=== PATIENT | male | born 1980 | race Caucasian/White ===

== ENCOUNTER 2023-06-14 14:17 | Emergency (ER) | payer OTHER, SELFPAY ==
[2023-06-14 14:23] VITALS: BP 160/93
[2023-06-14 14:41] LABS: % Basophils 0.4 % (0-2); % Immature Granulocytes 0.4 % (0-0.5); % Lymphocytes 28.3 % (20.5-51.1); % Monocytes 8.3 % (1.7-9.3); % Neutrophils 61.6 % (42.2-75.2); Absolute Eosinophils 0.1 10^3/uL (0-0.7); Absolute Monocytes 0.6 10^3/uL (0.1-0.6); Absolute Neutrophils 4.3 10^3/uL (1.4-6.5); Hematocrit 38.2 % (39.0-52.0); Hemoglobin 12.9 g/dL (13.0-18.0); Mean Corp Hgb Conc. 33.8 g/dL (33.0-37.0); Mean Corpuscular Hgb 29.3 pg (27.0-31.0); Mean Corpuscular Volume 86.6 fL (80.0-94.0); Mean Platelet Volume 8.3 fL (7.4-10.4); Nucleated Red Blood Cells % 0 % (-); Platelet Count 313 10^3/uL (130-400); Red Blood Cell Count 4.41 10^6/uL (4.70-6.10); Red Cell Dist. Width 12.3 % (11.5-14.5)
[2023-06-14 14:52] LABS: ALT (SGPT) 19 U/L (0-50); AST (SGOT) 21 U/L (17-59); Albumin 4.2 g/dl (3.5-5.0); Alkaline Phosphatase 91 U/L (38-126); Blood Urea Nitrogen 13 mg/dl (9-20); Calcium 9.2 mg/dl (8.4-10.2); Carbon Dioxide 27 mmol/L (22-30); Chloride 102 mmol/L (98-107); Glucose 106 mg/dl (70-99); Potassium 3.6 mmol/L (3.5-5.1); Sodium 135 mmol/L (135-145); Total Bilirubin 0.4 mg/dl (0.2-1.3); Total Protein 7.6 g/dl (6.3-8.2); eGFR > 60.00
--- NOTE | 2023-06-14 15:13 | ED.GENMED ---
History of Present Illness
General
Chief Complaint: Flank Pain
Time Seen by Provider: 06/14/23 15:01
Travel History
Have you had any contact with someone who has COVID-19?: No
Do you have any symptoms of coronavirus? Fever > 100 degrees, chills, cough, shortness of breath, sore throat, loss of taste or smell, muscle aches, or headache?: No
History of Present Illness
History of Present Illness:
HPI: The patient presents due to severe abrupt onset right flank pain. This feels similar to prior kidney stone. 2 years ago, the patient states that he required the OR intervention for management of the stone. This feels very similar to prior.
He does not have nausea. He has had no fevers. He tends to avoid NSAIDs as he has history of Crohn's disease.
EXAM:
GENERAL: Well appearing in mild distress
HEENT: Moist oral mucosa
CARDIOVASCULAR: No murmurs, normal heart rate, regular rhythm, No chest wall tenderness
PULMONARY: No respiratory distress, breath sounds are clear and equal
ABDOMEN: Soft with no peritoneal signs, no tenderness
NEUROLOGIC: Excellent strength all extremities, no coordination deficits
BACK: There is some vague right CVA tenderness
PSYCHIATRIC: Appropriate mental status, normal insight and judgement
EXTREMITIES: Nontender, no edema, moves all extremities equally
SKIN: No rash, no lesions
TIME OF INITIAL ENCOUNTER: 3:10 PM
NUMBER AND COMPLEXITY OF PROBLEMS ADDRESSED AT THE ENCOUNTER
� Chronic conditions affecting care: Crohn's disease, has had ureteral stone requiring operative management, has had bowel resection
� Acute Exacerbation and/or Progression of Chronic Illness: This is an acute problem
� Differential Diagnosis includes: Ureteral stone, UTI less likely, exacerbation of Crohn's disease very unlikely
AMOUNT AND/OR COMPLEXITY OF DATA TO BE REVIEWED AND ANALYZED
� I performed an independent evaluation of and my interpretation is:
EKG:
CT: I personally viewed CT imaging and agree with radiologist interpretation. I do see a stone at the distal right ureter which is small.
X-rays:
Laboratory Studies: White count 7.0, hemoglobin 12.9 which is a little bit lower than prior, chemistries unremarkable
Other:
� Review of other/old records: The patient had a stent placed in the right ureter by Dr. Segal in August 2019 due to a 7 mm mid right ureteral stone
� Clinical information was obtained by an independent historian: None needed
� Prescriptions/Medications Considered but not given:
� Further testing considered but not performed:
RISK OF COMPLICATIONS AND/OR MORBIDITY OR MORTALITY OF PATIENT MANAGEMENT
� Social determinants of health affecting care: Lives at home, drove himself here
� Discussion with other providers:
� Escalation of care including admission/observation vs risk of discharge considered: Will try dose of Toradol as a very strong suspicion for ureteral stone and initially will avoid narcotics as he did drive here. On
reassessment at about 5:30 PM, he appears very comfortable and states he is virtually no pain. He states he cannot tolerate solid pills�I have sent a prescription to his pharmacy for liquid oxycodone. I suggested a very short course of NSAIDs.
Past History
Past History
ED Past Medical History: Other (Crohn's colitis)
ED Past Surgical History: Other (2 prior bowel resections)
Social History
Tobacco: Non-smoker
Alcohol: None
Drug: None
Personal:
Living: with family
Employment: Employed
Family History
Family History: Other
Phy Exam
Physical Exam
Physical Exam:
See HPI
Course
Orders/Labs/Results
Orders:
Orders
06/14/23 14:28
CMP [Comprehensive Metabolic Panel] Urgent
Complete Blood Count/With Diff Urgent
06/14/23 15:11
0.9% Sodium Chloride 1000 ml [Nss] 1,000 ml IV BOLUS
Ketorolac [Toradol] 15 mg IV NOW STA
06/14/23 15:12
CT Abd/pel Without Iv Or Oral Urgent
Comment:
Reason For Exam: abrupt R flank pain
06/14/23 16:02
Urinalysis Reflex To Culture Urgent
Date Specimen was Collected: 06/14/23
Time Specimen was Collected: 14:25
Urine Microscopic Reflex Cult Urgent
Abnormal Lab Results
06/14/23 06/14/23
14:28 16:02
RBC 4.41 L 10^6/uL
(4.70-6.10)
Hgb 12.9 L g/dL
(13.0-18.0)
Hct 38.2 L %
(39.0-52.0)
Glucose 106 H mg/dl
(70-99)
Ur Occult Blood Reflex 1+ A
(Negative)
Urine RBC 11-15 A /HPF
(0-2)
Urine Bacteria (Reflex) Few A
(Negative)
06/14/23 14:28
06/14/23 15:11
Vital Signs
Initial and Last Documented VS:
Initial Vital Signs
Temp Pulse Resp BP Pulse Ox
98.6 F 89 18 160/93 99
06/14/23 14:23 06/14/23 14:23 06/14/23 14:23 06/14/23 14:23 06/14/23 14:23
Last Documented Vital Signs
Temp Pulse Resp BP Pulse Ox
98.6 F 88 18 135/91 98
06/14/23 14:23 06/14/23 18:32 06/14/23 18:32 06/14/23 18:32 06/14/23 18:32
*Critical Care Note
Total Time (30-74mins, 75-104mins- exclusive of procedures): Not Applicable
ED Attending Note
-
Portions of this chart may have been created with voice recognition software.� Occasional wrong word or��sound alike� substitutions may have occurred due to the inherent limitations of voice recognition software.
Discharge Plan
Departure
Patient Disposition: Home (Routine Discharge)
Date of Disposition: 06/14/23
Time of Disposition: 18:24
Patient with high blood pressure during this ER visit?: Yes
Discharge Problem:
Right distal ureteral calculus
Instructions: Renal Colic (DC)
Prescriptions:
New
oxycodone 5 mg/5 mL solution
5 - 10 mg PO Q6H PRN (Reason: Pain) Qty: 90 0RF
No Action
Stelara:
1 dose IM .[id number]
multivitamin with folic acid [Tab-A-Dante] 1 TABLET tablet
1 tab PO HS
Vitamin D3 Chewable
1 tab PO HS
loratadine 10 MG tablet
10 mg PO DAILY
Lactobacillus acidophilus [Probiotic] 1 EACH capsule
1 ea PO HS
Iron
54 mg PO HS
Referrals:
Maribell Smith CRNP [Family Provider] -
Raoul Head Jr., MD [Active] - Follow up in 5-7 days
Activity Restrictions/Additional Instructions:
Strain your urine. I have given you the contact information for local urologist, Dr. Head. You have a small stone in the distal ureter near the bladder therefore it is highly likely that this should pass on its own. I also recommend taking
NSAIDs such as ibuprofen/Motrin to help with pain.
CT:
1-2 mm distal right ureteral calculus, just superior to the right ureterovesical junction. Moderate right ureteral and pelvicalyceal dilation with mild right perinephric edema.
Tiny 2 mm nephrolith in the lower pole the right kidney. No evidence for left-sided urinary tract calculus.
Interventions
Interventions:
*Risk Screen - Suicide Last Done: 06/14/23 14:23
*General Assessment Last Done: 06/14/23 15:09
*Neglect/Abuse Screening Last Done: 06/14/23 14:23
ED- Fall Risk Assessment Last Done: 06/14/23 15:09
*ED COVID-19 Vaccine History Last Done: 06/14/23 14:23
*Nursing Disposition Last Done: 06/14/23 18:33
QT-Eckzze-Rzzmyoyjct Assessment Last Done: 06/14/23 15:07
ED-Male Genitourinary Assessment Last Done: 06/14/23 15:07
Discharge Date and Time
Discharge Date/Time: 06/14/23 18:33
Print Language: HONG KONGER
[2023-06-14] MEDS: NSS 1000 IV (15:30)
[2023-06-14] MEDS: TORADOL 15 MG IV (15:32)
[2023-06-14 16:22] LABS: Urine Albumin Negative (Neg - Trace); Urine Bilirubin Negative (Negative); Urine Character Clear (Clear); Urine Color Yellow; Urine Glucose Negative (Negative); Urine Ketone Negative (Negative); Urine Leukocyte Negative (Negative); Urine Nitrite Negative (Negative); Urine Occult Blood 1+ (Negative); Urine Urobilinogen Negative (Neg - 1+)
[2023-06-14 16:30] LABS: Urine Squamous Cell 0-2 /LPF (Few)
[2023-06-14 16:31] LABS: Urine Mucus Moderate
[2023-06-14 16:32] LABS: Urine Bacteria Few (Negative); Urine White Cell 0-2 /HPF (0-5)
[2023-06-14 18:32] VITALS: BP 135/91
== END 2023-06-14 18:33 | disposition home or self-care (01) ==
LOC: EMR 14:17
PROVIDERS: Student in an Organized Health Care Education/Training Program; EMERGENCY PHYSICIAN Emergency Medicine; FAMILY PHYSICIAN Family Medicine
DX: N20.1 Calculus of ureter (principal); K50.90 Crohn's disease, unspecified, without complications; Z87.442 Personal history of urinary calculi; Z90.49 Acquired absence of other specified parts of digestive tract
CPT/HCPCS: 99284; 96374; 96361; 74176; 80053; 81003; 81015; 85025

== ENCOUNTER → 2024-10-04 07:52 | Outpatient (REF) | payer OTHER, SELFPAY | LOC: MRI 3T 07:52 | PROVIDERS: ATTENDING PHYSICIAN Internal Medicine Gastroenterology; FAMILY PHYSICIAN Family Medicine | DX: K50.818 Crohn's disease of both small and large intestine with other complication (principal) | CPT/HCPCS: 72197; 74183; A9575 ==

== ENCOUNTER 2024-10-10 05:52 | Emergency (ER) | payer OTHER, SELFPAY ==
[2024-10-10 05:57] VITALS: BP 159/102
[2024-10-10 06:21] VITALS: BP 147/110
[2024-10-10 06:35] VITALS: BMI 22.1
[2024-10-10 06:44] LABS: Hematocrit 41.3 % (39.0-52.0); Hemoglobin 13.3 g/dL (13.0-18.0); Mean Corp Hgb Conc. 32.2 g/dL (33.0-37.0); Mean Corpuscular Volume 86.8 fL (80.0-94.0); Nucleated Red Blood Cells % 0 % (-); Platelet Count 313 10^3/uL (130-400); Red Cell Dist. Width 13.5 % (11.5-14.5)
--- NOTE | 2024-10-10 06:48 | ED.GENMED ---
History of Present Illness
General
Chief Complaint: Chest Pain
Source: patient
Exam Limitations: none
Time Seen by Provider: 10/10/24 06:15
Nursing documentation reviewed up to this point in time: agreed with
History of Present Illness
History of Present Illness:
Patient is a 44-year-old male with history of Crohn's disease on Remicade who presents to the emergency department for evaluation of left-sided chest pain. Patient states that this morning as he was driving to work around 3:30 AM he began to have a
pressure in his left chest. He denies any radiation of pain into his back or jaw. Pain seems to dissipate however when he got to work pain returned prompting visit to the emergency department. He states that he felt 'sweaty' during this. There
has been no clear exertional or pleuritic component to the symptoms.
Patient denies any associated shortness of breath, dizziness/lightheadedness, nausea, severe back pain.
Patient reports that over the past week or so he has been experiencing tingling sensations in his extremities. He denies any headache, visual changes, numbness in extremities. He denies any weakness. He has had no difficulty ambulating.
Patient states his grandfather had CAD.
Patient denies any recent travel or recent surgeries. No exogenous hormone use. No personal or family history of blood clots or clotting disorders
Past History
Past History
ED Past Medical History: Other (Crohn's colitis)
ED Past Surgical History: Other (2 prior bowel resections)
Social History
Tobacco: Non-smoker
Alcohol: None
Drug: None
Personal:
Living: with family
Employment: Employed
Family History
Family History: Other
Review of Systems
Review of Systems
Allergies reviewed?: Yes
All Other Systems: ROS reviewed and negative except as documented in HPI and ROS
Phy Exam
Physical Exam
Physical Exam:
Vitals: Hypertensive, otherwise vital signs stable. Afebrile
General: Patient is well appearing, no acute distress. Nontoxic appearing
Skin: Warm and dry, no rashes or lesions
Head: Normocephalic, atraumatic
Eyes: Sclera nonicteric. EOMs intact. No nystagmus.
Throat: Protecting airway
Neck: Normal ROM, no cervical spine tenderness, no meningismus
Cardiac: Regular rate and rhythm, no murmurs. No reproducible chest wall tenderness. 2+ palpable radial pulses bilaterally
Pulm: Normal respiratory effort, no wheezes, rales, rhonchi heard on exam
Abdomen: No abdominal tenderness.
Extremities: No evidence of cyanosis or edema. Strength 5/5 in bilateral upper and lower extremities. Sensation intact.
Neuro: AAOx3. Grossly intact.
Psychiatric: Normal affect.
Scores
Heart Score for Chest Pain Patients
STEMI patient?: Not applicable
PERC Rule Criteria
Age <50 years: Yes
HR <100 bpm: Yes
Room air oxygen sat >94%: Yes
History of DVT or PE: No
Recent trauma or surgery: No
Hemoptysis: No
Exogenous estrogen: No
Clinical signs suggestive of DVT: No
: No
Considered low risk for PE: Yes
PERC Score: 0
PE can be excluded by PERC: Yes
Course
Orders/Labs/Results
Orders:
Orders
10/10/24 06:04
ECG [Electrocardiogram (*1)] Urgent
Reason for Study: Chest Pain
EKG- Treatment ONCE
10/10/24 06:26
CMP [Comprehensive Metabolic Panel] Urgent
Complete Blood Count/With Diff Urgent
Creatine [Creatine Phosphokinase] Urgent
Magnesium Urgent
TSH Reflex To Free T4 Urgent
Comment: ADD ON
Troponin I Urgent
10/10/24 06:28
0.9% Sodium Chloride 500 ml [Nss] 500 ml IV BOLUS
10/10/24 06:31
CR Chest - 2 Views Urgent
Comment:
Reason For Exam: Chest pain
10/10/24 08:02
Add On- LAB Urgent
Tests Added?: TSH w/ reflex to T4
10/10/24 08:08
Troponin I Urgent
10/10/24 09:30
Electrocardiogram (*1) Urgent
Reason for Study: Chest Pain
10/10/24 09:34
EKG- Treatment ONCE
10/10/24 10:06
Troponin I Urgent
Abnormal Lab Results
10/10/24
06:26
MCHC 32.2 L g/dL
(33.0-37.0)
Glucose 103 H mg/dl
(70-99)
Creatine Kinase 48 L U/L
(55-170)
Total Protein 8.3 H g/dl
(6.3-8.2)
10/10/24 06:26
10/10/24 06:26
Vital Signs
Initial and Last Documented VS:
Initial Vital Signs
Temp Pulse Resp BP Pulse Ox
97.7 F 85 16 159/102 100
10/10/24 05:57 10/10/24 05:57 10/10/24 05:57 10/10/24 05:57 10/10/24 05:57
Last Documented Vital Signs
Temp Pulse Resp BP Pulse Ox
97.7 F 80 23 127/92 97
10/10/24 05:57 10/10/24 11:30 10/10/24 07:00 10/10/24 11:00 10/10/24 11:30
MDM/Problems Addressed
Differential Diagnosis Includes:
Not limited to: Muscle strain, GERD, electrolyte imbalance, acute coronary syndrome, pneumonia, etc.
MDM/Problems Addressed:
44-year-old male presenting with atypical chest pain with diaphoresis today. No exertional or pleuritic component to symptoms. No associated shortness of breath, back pain, lightheadedness. He does also report some vague tingling in his right
shoulder and left lower leg intermittently over the past week. No other neurologic symptoms. No visual changes. No headache. Patient hypertensive on arrival although improved by my assessment. Otherwise vital signs are stable. Physical exam as
above. Patient well-appearing, in no apparent distress. Heart regular rate and rhythm. Lungs clear bilaterally. No reproducible chest wall tenderness. Patient has palpable and equal radial pulses bilaterally. He is neurologically intact with
equal strength and normal sensation. No evidence of DVT on exam. He has no chest pain at time of my evaluation.
Differential broad. ED plan: Labs, serial troponin, chest x-ray. Will give IV fluids and reassess
Update: Patient has been monitored in the emergency department for multiple hours. He has remained essentially asymptomatic. He was given a liter of IV fluids. Labs without acute findings. Electrolytes within normal range. Serial troponins
negative x 2 with nonischemic EKGs. Chest x-ray without acute findings. TSH normal. Patient has PERC score of 0�do not suspect PE. At this point�very low suspicion for ACS or acute cardiac process. Do not suspect dissection or other emergent
process..
Feel stable for discharge home with continued primary care follow-up. Discussed possible neurology follow-up/MRI if he develops neurologic symptoms. Patient comfortable with plan.
Chronic conditions affecting care:
Crohn's disease on Remicade
Acute Exacerbation and/or Progression of Chronic Illness:
N/A
*Radiology
Radiology exam reviewed: preliminary read by ED provider (Chest x-ray reviewed by me-no acute abnormality) and radiology read reviewed
*Pulse Oximetry
SaO2: 100
Oxygen Mode of Delivery: Room air
Patient hypoxic: no
*EKG
Interpreted by ED Provider?: Yes
EKG Intrepretation Date: 10/10/24
Interpretation: normal
Comparison EKG: no changes
Heart Rate: 78
Rate: normal
Rhythm: sinus
[place]: normal axis
Interval: normal QT interval
QRS Pattern: normal QRS
Ischemia: no ischemia
*[employer] Interpretation
Rate: normal
Interpretation: normal
Heart Rate: 82
Rhythm: sinus
*Critical Care Note
Total Time (30-74mins, 75-104mins- exclusive of procedures): Not Applicable
ED Attending Note
-
Portions of this chart may have been created with voice recognition software.� Occasional wrong word or��sound alike� substitutions may have occurred due to the inherent limitations of voice recognition software.
Discharge Plan
Departure
Patient Disposition: Home (Routine Discharge)
Date of Disposition: 10/10/24
Time of Disposition: 11:13
Patient with high blood pressure during this ER visit?: Yes
Discharge Problem:
Chest pain
Instructions: Chest pain - Discharge instructions, Chest Pain PCP Follow Up, BLOOD PRESSURE
Prescriptions:
No Action
multivitamin with folic acid [Tab-A-Dante] 1 TABLET tablet
1 tab PO HS
Vitamin D3 Chewable
1 tab PO HS
loratadine 10 MG tablet
10 mg PO DAILY
Probiotic 1 EACH capsule
1 ea PO HS
Iron
54 mg PO HS
Inflectra 100 mg Recon Soln
1 mg IV .MONTHLY
Referrals:
Amanda Merino MD [Family Provider, Internal Medicine] - Keep scheduled appt
Activity Restrictions/Additional Instructions:
RETURN TO THE EMERGENCY DEPARTMENT WITH ANY CHEST PAIN, SHORTNESS OF BREATH, SEVERE BACK PAIN, NUMBNESS OR WEAKNESS IN EXTREMITIES, VISUAL CHANGES, OTHER NEUROLOGIC SYMPTOMS, WORSENING IN CURRENT SYMPTOMS, OR ANY OTHER CONCERNS
- You came to emergency department with concerns of chest pain. Your lab work including cardiac enzymes were negative. Your thyroid level was normal. You were given a liter of IV fluids
- It is important stay well-hydrated.
- Follow-up with your primary care provider for further evaluation/management to ensure that your symptoms are improving. If symptoms persist�you might need further workup/imaging
Monitor your symptoms closely and return to the emergency department any acute worsening/new symptoms or any other concerns
Interventions
Interventions:
*Risk Screen - Suicide Last Done: 10/10/24 06:02
*General Assessment Last Done: 10/10/24 06:42
*Neglect/Abuse Screening Last Done: 10/10/24 06:02
*ED- Fall Risk Assessment Last Done: 10/10/24 06:02
*ED COVID-19 Vaccine History Last Done: 10/10/24 06:02
*Nursing Disposition Last Done: 10/10/24 11:41
ED- Cardiac Assessment Last Done: 10/10/24 06:32
Discharge Date and Time
Discharge Date/Time: 10/10/24 11:39
Print Language: [id number]
[2024-10-10] MEDS: NSS 500 IV (06:56)
[2024-10-10 07:00] VITALS: BP 128/93
[2024-10-10 07:11] LABS: ALT (SGPT) 15 U/L (0-50); AST (SGOT) 17 U/L (17-59); Albumin 4.4 g/dl (3.5-5.0); Alkaline Phosphatase 83 U/L (38-126); Blood Urea Nitrogen 16 mg/dl (9-20); Calcium 9.7 mg/dl (8.4-10.2); Carbon Dioxide 28 mmol/L (22-30); Chloride 104 mmol/L (98-107); Estimated Creatinine Clearance 85 ml/min; Glucose 103 mg/dl (70-99); Magnesium 2.0 mg/dl (1.6-2.3); Potassium 4.3 mmol/L (3.5-5.1); Sodium 139 mmol/L (135-145); Total Protein 8.3 g/dl (6.3-8.2); Troponin I < 0.012 ng/ml; eGFR > 60.00
[2024-10-10 08:00] VITALS: BP 125/84
[2024-10-10 08:41] LABS: Troponin I < 0.012 ng/ml
[2024-10-10 10:02] VITALS: BP 117/88
[2024-10-10 11:00] VITALS: BP 127/92
[2024-10-10 11:00] LABS: Troponin I < 0.012 ng/ml
== END 2024-10-10 11:39 | disposition home or self-care (01) ==
LOC: EMR 05:52
PROVIDERS: Physician Assistant; EMERGENCY PHYSICIAN Emergency Medicine; FAMILY PHYSICIAN Internal Medicine
DX: R07.89 Other chest pain (principal); I10 Essential (primary) hypertension; K50.90 Crohn's disease, unspecified, without complications; Z79.620 Long term (current) use of immunosuppressive biologic; Z82.49 Family history of ischemic heart disease and other diseases of the circulatory system
CPT/HCPCS: 99285; 96360; 71046; 80053; 82550; 83735; 84443; 84484; 85025; 93005